=== PATIENT | male | born 1960 | race Hispanic/Latino ===

== ENCOUNTER → 2020-04-04 | Outpatient (CLI) | payer OTHER ==
--- NOTE | 2020-04-04 13:56 | Diagnostic Imaging Report ---
MRI of the right ankle without contrast. History: Ankle pain. Osteochondral lesion of the talar dome. Fall. Technique: Utilizing a high-field 1.5T magnet, the following sequences were acquired: PD FS in all 3 planes with additional axial PD. Comparison: September 04, 2019. Findings: Achilles tendon and plantar fascia: Thickening and mid substance degeneration of the distal Achilles tendon with bone spur at the calcaneal insertion site. Thickening and intrasubstance degeneration involving the medial cord of the plantar fascia at the inferior calcaneal insertion site with associated bone spur. No Achilles tendon tear. No plantar fascial tear. Mild retrocalcaneal bursitis. Cartilage and bone: Partial interval healing of the previously seen 5 mm lateral talar dome osteochondral lesion with associated bone marrow edema best seen on coronal image 21 . Decreased bone marrow edema when compared with the prior exam. No free fragmentation or sign of instability. No cortical fracture, dislocation or evidence of avascular necrosis. Scattered degenerative change. Medial ankle: The deltoid ligament complex is intact. The medial flexor tendons are normal. There is a physiologic amount of fluid within the tendon sheath of FHL. Lateral ankle: Scarring and chronic appearing partial tear of the anterior talofibular and calcaneofibular ligaments. The posterior talofibular ligaments are intact. Synovitis and effusion at the anterior lateral gutter. The syndesmotic ligaments are intact. The peroneal tendons are normal. Anterior ankle: The anterior extensor tendons are normal. Other findings: Tibiotalar joint effusion and synovitis Impression: Scarring and chronic appearing partial tear of the anterior talofibular and calcaneofibular ligaments. The posterior talofibular ligaments are intact. Synovitis and effusion at the anterior lateral gutter. Partial interval healing of the previously seen 5 mm lateral talar dome osteochondral lesion with associated bone marrow edema best seen on coronal image 21 . Decreased bone marrow edema when compared with the prior exam. No free fragmentation or sign of instability Signed by: Dr. James Davila M.D. on 04/04/2020 1:53 PM
== END ==
LOC: MRI 10:41
PROVIDERS: ATTEND Orthopaedic Surgery
DX: M89.9 Disorder of bone, unspecified (principal); M94.9 Disorder of cartilage, unspecified